=== PATIENT | male | born 1965 | race Two or more races ===

== ENCOUNTER 2017-10-10 01:27 | Emergency (ER) | payer OTHER ==
[~2017-10-10] VITALS: Ht 167.6 cm; Wt 86.2 kg
== END 2017-10-10 12:17 | disposition home or self-care (01) ==
LOC: ER 01:27
DX: R53.81 Other malaise (principal); F10.10 Alcohol abuse, uncomplicated

== ENCOUNTER 2021-11-29 03:18 | Emergency (ER) | payer OTHER ==
[~2021-11-29] VITALS: Ht 175.3 cm; Wt 86.2 kg
== END 2021-11-29 16:47 | disposition home or self-care (01) ==
LOC: ER 03:18
DX: R00.2 Palpitations (principal); F14.10 Cocaine abuse, uncomplicated; F10.10 Alcohol abuse, uncomplicated; Z20.822 Contact with and (suspected) exposure to COVID-19

== ENCOUNTER → 2022-02-17 | Emergency (ER) | payer OTHER ==
[~2022-02-17] VITALS: Ht 167.6 cm; Wt 86.2 kg
== END | disposition left against medical advice (07) ==
LOC: ER 01:57
DX: Z53.21 Procedure and treatment not carried out due to patient leaving prior to being seen by health care provider (principal)